=== PATIENT | female | born 2000 | race Caucasian/White ===

== ENCOUNTER 2020-07-01 13:55 | Outpatient (REF) | payer OTHER, SELFPAY ==
[2020-07-01 14:15] LABS: COVID-19 Test Negative (Negative)
== END 2020-07-01 13:56 | disposition home or self-care (01) ==
LOC: HO.EMPCOV 13:55
PROVIDERS: Visit Provider Internal Medicine
DX: Z20.828 Contact with and (suspected) exposure to other viral communicable diseases (principal)
CPT/HCPCS: 87635; C9803

== ENCOUNTER 2020-07-21 08:34 | Outpatient (REF) | payer OTHER, SELFPAY ==
[2020-07-21 08:56] LABS: COVID-19 Test Negative (Negative); IDNOW Serial# 55D5AD1C
== END 2020-07-21 08:35 | disposition home or self-care (01) ==
LOC: HO.LAB 08:34
PROVIDERS: Visit Provider Internal Medicine
DX: Z20.822 Contact with and (suspected) exposure to COVID-19 (principal)
CPT/HCPCS: 36415; 87635; C9803